=== PATIENT | male | born 2000 ===

== ENCOUNTER 2023-05-28 03:33 | Inpatient (IN) | payer MEDICAID, SELFPAY ==
[2023-05-28] VITALS (18 sets, daily range): BP systolic 117–136; BP diastolic 51–77; PULSE 101–131; RESP 18–40; TEMP 36.4–37.2; O2SAT 90–95; BMI 48.2
--- NOTE | ~2023-05-28 | XR_ITS ---
EXAMINATION: XR CHEST CLINICAL INFORMATION: Dyspnea. COMPARISON: None available. TECHNIQUE: Frontal view of the chest was obtained. FINDINGS: No significant abnormality is noted involving the heart, lungs, mediastinum, bony thorax or soft tissues. XR/XR chest 1V IMPRESSION: Unremarkable examination.
--- NOTE | 2023-05-28 03:41 | ECG_ITS ---
Test Reason : ASTHMA Blood Pressure : / mmHG Vent. Rate : 112 BPM Atrial Rate : 112 BPM P-R Int : 122 ms QRS Dur : 094 ms QT Int : 342 ms P-R-T Axes : 068 -33 021 degrees QTc Int : 466 ms Sinus tachycardia Left axis deviation Incomplete right bundle branch block Abnormal ECG No previous ECGs available Referred By: Generic ED Physician Electronically Signed By:NA CALEL
[2023-05-28 03:58] LABS: Basophils Absolute Auto 0.1 X10*3/uL (0.0-0.2); Basophils Percent Auto 0.6 % (0-2); Eosinophils Absolute Auto 0.4 X10*3/uL (0.0-0.4); Eosinophils Percent Auto 2.6 % (0-4); Hematocrit 43.7 % (42.0-52.0); Hemoglobin 14.5 g/dl (14.0-18.0); Imm Gran Abs Auto 0.12 X10*3/uL (0.00-0.03); Imm Gran Pct Auto 0.8 % (0.0-0.4); Lymphocytes Absolute Auto 2.4 X10*3/uL (1.2-4.9); Lymphocytes Percent Auto 16.8 % (20-40); MANUAL DIFF FLAG SCAN; Mean Corpuscular HGB Conc 33.2 g/dl (31.0-36.0); Mean Corpuscular Hemoglobin 27.7 pg (27.0-33.0); Mean Corpuscular Volume 83.6 fL (80.0-98.0); Mean Platelet Volume 12.5 fL (9.4-12.4); Monocytes Absolute Auto 1.5 X10*3/uL (0.1-1.2); Monocytes Percent Auto 10.4 % (2-11); Neutrophils Percent Auto 68.8 % (45-73); Platelet Count 213 X10*3/uL (160-400); Red Blood Count 5.23 X10*6/uL (4.60-5.80); SCAN SMEAR FLAG 1; White Blood Count 14.5 X10*3/uL (4.8-10.8)
--- NOTE | 2023-05-28 04:05 | MHC.EDTECH ---
This pct just assumed care of pt ,ekg taken and was read by Provider ,,flu/covid swab collected and sent to lab .
[2023-05-28] MEDS: Albuterol Sulfate 5 MG, Albuterol Sulfate (0.083%) 2.5 MG 7.5 MG INHALE (04:08)
[2023-05-28 04:11] LABS: Anion Gap 14 (12-20); Blood Urea Nitrogen 11 mg/dL (9-16); Calcium 9.6 mg/dL (8.4-10.2); Carbon Dioxide 25 mmol/L (22-29); Chloride 108 mmol/L (96-108); Creatinine Clr Calc Pharmacy 189.8; Estimated Glomerular Filt Rate > 60; Glucose Random 119 mg/dL (60-115); Potassium 3.9 mmol/L (3.3-5.1); Sodium 143 mmol/L (135-145)
[2023-05-28] MEDS: Albuterol Sulfate 7.5 MG, Albuterol Sulfate (0.083%) 2.5 MG 10 MG INHALE (04:25)
[2023-05-28 04:26] LABS: Troponin-I High Sensitivity < 2.7 ng/L (<3.5-35.0)
[2023-05-28 04:26] LABS: COVID-19 Test Negative (Negative); IDNOW Serial# 152EDE1D; IDNOW Serial# 9DB6401D; Influenza A Negative (Negative); Influenza B2 Negative (Negative)
[2023-05-28 04:28] LABS: SLIDE REVIEW VERIFIED
--- NOTE | 2023-05-28 04:30 | ED.SOB ---
HPI - SOB/Dyspnea General Chief Complaint: Dyspnea Stated Complaint: asthma Time Seen by Provider: 05/28/23 04:14 Source: patient Mode of arrival: ambulatory Limitations: no limitations History of Present Illness HPI Narrative: Patient history of asthma been feeling increased shortness of breath for last 2 days ran out of his inhaler and nebulizing medication since yesterday also does have nasal congestion does not get sick very often no fever no chills no chest pain no other family member sick Related Data Allergies Allergy/AdvReac Type Severity Reaction Status Date / Time No Known Allergies Allergy Verified 05/28/23 04:31 Review of Systems Review of Systems: Yes all other systems are reviewed and are negative PMFSH Past Medical History Onset Date is defined in the Problem List Problems that require an onset date and time if occurred within 24 hrs of arrival to the ED Aortic Dissection and Rupture; Neurologic impairment; Cardiopulmonary Arrest; Endotracheal Intubation; Insertion or Replacement of Mechanical Circulatory Assist Device Medical History Asthma Social History Social History Advance Directives: No Advance Directives Information Provided: Yes Physical Exam Vital Signs: Vital Signs: Last Vital Signs Temp 98.5 F 05/28/23 05:01 Pulse 125 H 05/28/23 05:41 Resp 24 H 05/28/23 05:41 BP 136/77 05/28/23 05:01 Pulse Ox 93 05/28/23 05:01 O2 Del Method Room Air 05/28/23 05:01 O2 Flow Rate 2 05/28/23 05:01 BMI result Body Mass Index 48.2 Appearance: Alert. Oriented X3. Moderate respiratory distress with audible wheezing Eyes: PERRLA, No Nystagmus ENT: Pharynx normal. Oral Mucosa moist Neck: Normal inspection. Neck supple. CVS: Normal heart rate and rhythm. Pulses normal. Respiratory: Mode respiratory distress. Equal air entry bilateral, bilateral wheezing no rales Abdomen: Soft and nontender. Bowel sounds are present, Skin: Skin warm and dry. Normal skin color. Normal skin turgor. Extremities: No lower extremity edema. No calf tenderness Neuro: Oriented X 3. No motor deficit. Medications Administered Generic Name Dose Route Start Last Admin Trade Name Freq PRN Reason Stop Dose Admin Enoxaparin Sodium 40 mg 05/28/23 05:00 05/28/23 05:12 Enoxaparin Sodium 40 Mg/0.4 Ml Syringe SUBCUT Not Given Q24H KAILA Discontinued Medications Generic Name Dose Route Start Last Admin Trade Name Geovany PRN Reason Stop Dose Admin Albuterol Sulfate 5 mg/ 7.5 mg 05/28/23 04:03 05/28/23 04:08 Albuterol Sulfate 2.5 mg INHALE 05/28/23 04:04 7.5 mg ONCE ONE Administration Albuterol Sulfate 7.5 mg/ 10 mg 05/28/23 04:19 05/28/23 04:25 Albuterol Sulfate 2.5 mg INHALE 05/28/23 04:20 10 mg ONCE ONE Administration Albuterol Sulfate 7.5 mg/ 0 mg 05/28/23 05:06 05/28/23 05:15 Albuterol/Ipratropium 3 ml INHALE 05/28/23 05:07 10 each ONCE ONE Administration Magnesium Sulfate 2 gm in 50 mls @ 150 mls/hr 05/28/23 04:31 05/28/23 05:43 Magnesium Sulfate/H2o IV 05/28/23 04:50 Infused ONCE ONE Infusion Methylprednisolone Sodium Succinate 125 mg 05/28/23 04:31 05/28/23 05:10 Methylprednisolone Sod Succ 125 Mg/2 Ml Vial IVPUSH 05/28/23 04:32 125 mg ONCE ONE Administration Medical Decision Making Medical Decision Making [facility] Narrative: Patient has status asthmaticus requiring continuous treatments the ER admit patient for supportive treatment Differential Diagnosis Differential Diagnoses: The differential diagnosis associated with the presentation includes Asthma/pneumonia/pneumonitis Admission/Observation Consideration of admission/observation: Escalation of care including admission/observation considered Consult Healthcare Provider Management of the patient was discussed with: Hospitalist Lab Data [facility] Lab Attestation statement: I reviewed the patient's lab results. 05/28/23 03:52 05/28/23 03:52 Labs: Lab Results 05/28/23 05/28/23 Range/Units 03:52 04:04 WBC 14.5 H (4.8-10.8) X10*3/uL RBC 5.23 (4.60-5.80) X10*6/uL Hgb 14.5 (14.0-18.0) g/dl Hct 43.7 (42.0-52.0) % MCV 83.6 (80.0-98.0) fL MCH 27.7 (27.0-33.0) pg MCHC 33.2 (31.0-36.0) g/dl RDW 14.0 (11.0-16.0) % Plt Count 213 (160-400) X10*3/uL MPV 12.5 H (9.4-12.4) fL Immature Gran % (Auto) 0.8 H (0.0-0.4) % Neut % (Auto) 68.8 (45-73) % Lymph % (Auto) 16.8 L (20-40) % [place] % (Auto) 10.4 (2-11) % Eos % (Auto) 2.6 (0-4) % Baso % (Auto) 0.6 (0-2) % Lymph # (Auto) 2.4 (1.2-4.9) X10*3/uL [place] # (Auto) 1.5 H (0.1-1.2) X10*3/uL Eos # (Auto) 0.4 (0.0-0.4) X10*3/uL Baso # (Auto) 0.1 (0.0-0.2) X10*3/uL Abs Immat Gran (auto) 0.12 H (0.00-0.03) X10*3/uL Absolute Neuts (auto) 10.0 H (2.0-8.3) x10*3/uL Absolute Nucleated RBC 0.000 (0.0-0.012) X10*3/uL Nucleated RBC % (auto) 0.0 (0.0-0.2) /100WBC Smear Tech's Comments VERIFIED Sodium 143 (135-145) mmol/L Potassium 3.9 (3.3-5.1) mmol/L Chloride 108 (96-108) mmol/L Carbon Dioxide 25 (22-29) mmol/L Anion Gap 14 (12-20) BUN 11 (9-16) mg/dL Creatinine 0.92 (0.5-1.4) mg/dL Estim Creat Clear Calc 189.8 Estimated GFR > 60 Random Glucose 119 H (60-115) mg/dL Calcium 9.6 (8.4-10.2) mg/dL Troponin I High Sens < 2.7 (<3.5-35.0) ng/L COVID-19 (JAN) Negative (Negative) COVID-19 Clin Com See Note Influenza Type A (MARIA ISABEL) Negative (Negative) Influenza Type B (MARIA ISABEL) Negative (Negative) Influenza A & B Note See Note Independent Interpretation I performed an independent interpretation of an: Plain X-Ray Radiology Impression Discussion of test interpretation with radiology: I have reviewed the radiologist's reading. Critical Care Time Critical Care Time Critical Care Time: Yes Total Critical Care Time: 55 Attestation: The patient was critically ill with a high probability of imminent or life threatening deterioration. I spent greater than 60???minutes of discontinuous time evaluating the patient,delivering critical care at the bedside, discussing and evaluating pertinent data with consultants. Critical care time does not include time spent performing separately billable procedures or teaching. Total time spent performing critical care was 55???minutes. Discharge Plan Discharge Clinical Impression: Asthma exacerbation Patient Disposition: Admitted As Inpatient
--- NOTE | 2023-05-28 04:45 | P.HPHOSP_ITS ---
History of Present Illness Date of Service: 05/28/23 Chief Complaint: Dyspnea This is a 22-year-old male with pertinent history of asthma not on home oxygen who presents to the emergency department for evaluation of dyspnea. Patient states his symptoms started 3 days prior to presentation. He has been having nonproductive cough which is associated with wheezing and dyspnea which is worse with exertion. His symptoms have been progressive over the last 3 days and without any relief. He states he has been hospitalized for asthma in the past. Never been intubated. No fever, chills, chest discomfort, palpitations, orthopnea, PND, abdominal pain, changes in urinary or bowel habits. In the emergency department, patient with wheezing despite multiple DuoNeb treatments Review of Systems 2 Constitutional: Constitutional: Reports fatigue and Reports lethargy Cardiovascular: Cardiovascular: Reports dyspnea on exertion Respiratory: Respiratory: Reports cough, Reports dyspnea on exertion and Reports wheezing Gastrointestinal: Gastrointestinal: Reports no additional gastrointestinal complaints Genitourinary: Genitourinary: Reports no additional male genitourinary complaints Endocrine: Endocrine: Reports fatigue Allergic/Immunologic: Allergic/Immunologic: Reports wheezing [facility] Medical History Asthma Pertinent family history: No family history of early CAD Social History Advance Directives: No Advance Directives Information Provided: Yes Meds Allergies Allergy/AdvReac Type Severity Reaction Status Date / Time No Known Allergies Allergy Verified 05/28/23 04:31 Active Medications: Current Medications Magnesium Sulfate (Magnesium Sulfate/H2o) 2 gm in 50 mls @ 150 mls/hr IV ONCE ONE Stop: 05/28/23 04:50 Physical Exam 2 Vital Signs and Narrative: Vital Signs: Last Vital Signs Temp 98.4 F 05/28/23 04:00 Pulse 108 H 05/28/23 04:26 Resp 18 05/28/23 04:26 BP 122/75 05/28/23 04:00 Pulse Ox 93 05/28/23 04:00 O2 Del Method Room Air 05/28/23 04:00 BMI result Body Mass Index 48.2 Young male lying in bed in mild distress Neck supple, no JVD Tachycardic with regular rhythm, S1-S2 heard Bilateral wheezing without crackles Abdomen soft nontender, no guarding, no rigidity Patient is awake, alert and oriented to self, place, time and person ; no focal motor deficit Psych: Normal mood No pedal edema Results Labs 05/28/23 03:52 05/28/23 03:52 Labs: Laboratory Results - last 24 hr 05/28/23 05/28/23 03:52 04:04 MCV 83.6 MCH 27.7 MCHC 33.2 RDW 14.0 Plt Count 213 MPV 12.5 H Immature Gran % (Auto) 0.8 H Neut % (Auto) 68.8 Lymph % (Auto) 16.8 L [place] % (Auto) 10.4 Eos % (Auto) 2.6 Baso % (Auto) 0.6 Lymph # (Auto) 2.4 [place] # (Auto) 1.5 H Eos # (Auto) 0.4 Baso # (Auto) 0.1 Abs Immat Gran (auto) 0.12 H Absolute Neuts (auto) 10.0 H Absolute Nucleated RBC 0.000 Nucleated RBC % (auto) 0.0 Smear Tech's Comments VERIFIED Anion Gap 14 Estim Creat Clear Calc 189.8 Estimated GFR > 60 Random Glucose 119 H Calcium 9.6 COVID-19 (JAN) Negative COVID-19 Clin Com See Note Influenza Type A (MARIA ISABEL) Negative Influenza Type B (MARIA ISABEL) Negative Influenza A & B Note See Note Assessment and Plan (1) Asthma exacerbation: Status: Acute Plan This is a 22-year-old male with pertinent history of asthma not on home oxygen who presents to the emergency department for evaluation of dyspnea. #. Acute respiratory distress due to acute exacerbation of asthma: Scheduled and p.r.nLawanda Edouard. Initiating systemic steroids. Continue home inhaler #. Reactive leukocytosis and sinus tachycardia in the setting of above #. Obesity: Counseled regarding diet and exercise DVT prophylaxis: Lovenox Full code Quality Stroke Does the patient have a stroke diagnosis?: No VTE Prior VTE?: No VTE Risk Level:: Medical - moderate - high VTE Device Contraindication: Treatment Not Indicated VTE Drug Contraindication: N/A - Med Ordered
[2023-05-28] MEDS: Magnesium Sulfate/H2O 2 GM/50 ML PIGGYBACK IV (05:10)
[2023-05-28] MEDS: methylPREDNISolone Sod Succ 125 MG/2 ML VIAL IVPUSH (05:10)
[2023-05-28] MEDS: Albuterol Sulfate 7.5 MG, Albuterol/Iprat 2.5/0.5MG 3 ML 3 ML INHALE (05:15)
[2023-05-28 05:59] LABS: Basophils Absolute Auto 0.1 X10*3/uL (0.0-0.2); Basophils Percent Auto 0.6 % (0-2); Eosinophils Absolute Auto 0.4 X10*3/uL (0.0-0.4); Eosinophils Percent Auto 2.8 % (0-4); Hematocrit 45.4 % (42.0-52.0); Hemoglobin 14.7 g/dl (14.0-18.0); Imm Gran Abs Auto 0.08 X10*3/uL (0.00-0.03); Imm Gran Pct Auto 0.5 % (0.0-0.4); Lymphocytes Absolute Auto 2.4 X10*3/uL (1.2-4.9); Lymphocytes Percent Auto 15.4 % (20-40); MANUAL DIFF FLAG SCAN; Mean Corpuscular HGB Conc 32.4 g/dl (31.0-36.0); Mean Corpuscular Hemoglobin 27.5 pg (27.0-33.0); Mean Platelet Volume 12.2 fL (9.4-12.4); Monocytes Absolute Auto 1.5 X10*3/uL (0.1-1.2); Monocytes Percent Auto 9.7 % (2-11); Neutrophils Absolute Auto 11.1 x10*3/uL (2.0-8.3); Platelet Count 190 X10*3/uL (160-400); Red Blood Count 5.34 X10*6/uL (4.60-5.80); Red Cell Distribution Width 14.1 % (11.0-16.0); SCAN SMEAR FLAG 1; White Blood Count 15.6 X10*3/uL (4.8-10.8)
[2023-05-28 06:11] LABS: Anion Gap 15 (12-20); Blood Urea Nitrogen 10 mg/dL (9-16); Calcium 9.4 mg/dL (8.4-10.2); Carbon Dioxide 21 mmol/L (22-29); Chloride 107 mmol/L (96-108); Creatinine Clr Calc Pharmacy 218.3; Estimated Glomerular Filt Rate > 60; Glucose Random 143 mg/dL (60-115); Potassium 3.4 mmol/L (3.3-5.1); Sodium 140 mmol/L (135-145)
[2023-05-28] MEDS: Albuterol/Iprat 2.5/0.5MG 3 ML AMPUL.NEB INHALE ×3 (08:12→19:55)
[2023-05-28] MEDS: methylPREDNISolone Sod Succ 40 MG/ML VIAL IVPUSH ×2 (08:45→20:50)
[2023-05-28] MEDS: 0.9 % Sodium Chloride Flush 3 ML SYRINGE IVFLUSH ×3 (08:46→20:50)
[2023-05-28] MEDS: Enoxaparin Sodium 40 MG/0.4 ML SYRINGE SUBCUT (09:05)
--- NOTE | 2023-05-28 09:11 | PHA.MEDREC ---
Pharmacy Consult ? Medication Reconciliation Pharmacy has completed the medication reconciliation. spoke with patient to confirm medications. Reports that he ran out of his breathing treatments.
[2023-05-28] MEDS: LORazepam 1 MG TABLET PO (12:00)
--- NOTE | 2023-05-28 12:35 | P.CONPL_ITS ---
History of Present Illness History of Present Illness Consult date: 05/28/23 Chief complaint: dyspnea Narrative: 22-year-old gentleman, nonsmoker, with history of asthma since childhood admitted on 05/28/2023 with asthma exacerbation resulting in dyspnea. He was started systemic glucocorticoids and nebulized bronchodilators with some improvement, however still with wheezing. Review of Systems 2 Constitutional: Constitutional: Denies daytime sleepiness, Denies excessive sweating, Denies fatigue, Denies fever(s), Denies lethargy, Denies malaise, Denies night sweats, Denies snoring and Denies weight loss Eyes: Eyes: Denies blurry vision and Denies itchy eyes ENT: Denies nasal congestion, Denies post nasal drip, Denies sinus pain, Denies sinus pressure and Denies other ( Thrush) Cardiovascular: Cardiovascular: Denies chest pain, Denies pedal edema, Reports dyspnea, Denies orthopnea and Denies paroxysmal nocturnal dyspnea Respiratory: Respiratory: Denies cough, Denies hemoptysis, Denies excessive phlegm production, Reports dyspnea, Denies snoring and Reports wheezing Gastrointestinal: Gastrointestinal: Denies abdominal pain and Denies heartburn Musculoskeletal: Musculoskeletal: Denies myalgias, Denies arthralgias and Denies joint swelling Integumentary/Breasts: Skin/Breast: Denies rash Neurologic: Denies memory loss and Denies seizure-like activity Psychiatric: Psychiatric: Denies abnormal sleep pattern, Denies anxiety and Denies memory loss Endocrine: Endocrine: Denies excessive sweating, Denies fatigue and Denies heat intolerance Hematologic/Lymphatic: Hematologic/Lymphatic: Denies easy bruising Allergic/Immunologic: Allergic/Immunologic: Denies itchy eyes, Denies seasonal rhinorrhea and Reports wheezing PMFSH Past Medical History Medical History Asthma Social History Social History Patient Tobacco Use Status: Never used Tobacco Advance Directives: No Advance Directives Information Provided: Yes Nutrition Risks: No Nutritional Risk Meds Allergies Allergy/AdvReac Type Severity Reaction Status Date / Time No Known Allergies Allergy Verified 05/28/23 04:31 Active Medications: Current Medications Acetaminophen (Acetaminophen 325 Mg Tablet) 650 mg PO Q6H PRN PRN Reason: Pain, Mild (Pain Scale 1-3) Albuterol/Ipratropium (Albuterol/Iprat 2.5/0.5mg 3 Ml Ampul.Neb) 3 ml INHALE RQ4H WHILE AWAKE [facility] Last Admin: 05/28/23 11:49 Dose: Not Given Albuterol/Ipratropium (Albuterol/Iprat 2.5/0.5mg 3 Ml Ampul.Neb) 3 ml INHALE Q4H PRN PRN Reason: Wheezing Enoxaparin Sodium (Enoxaparin Sodium 40 Mg/0.4 Ml Syringe) 40 mg SUBCUT Q24H [facility] Last Admin: 05/28/23 09:05 Dose: 40 mg Lorazepam (Lorazepam 1 Mg Tablet) 1 mg PO Q6H PRN PRN Reason: Anxiety Last Admin: 05/28/23 12:00 Dose: 1 mg Melatonin (Melatonin 3 Mg Tablet) 6 mg PO BEDTIME PRN PRN Reason: Insomnia Methylprednisolone Sodium Succinate (Methylprednisolone Sod Succ 40 Mg/Ml Vial) 40 mg IVPUSH Q12H [facility] Last Admin: 05/28/23 08:45 Dose: 40 mg Ondansetron HCl (Ondansetron Hcl 4 Mg/2 Ml Vial) 4 mg IVPUSH Q8H PRN PRN Reason: Nausea and Vomiting Sodium Chloride (0.9 % Sodium Chloride Flush 3 Ml Syringe) 3 ml IVFLUSH QSHIFT [facility] Last Admin: 05/28/23 08:46 Dose: 3 ml Home Medications Medication Instructions Recorded Confirmed Last Taken Type albuterol sulfate 2.5 mg/3 mL 2.5 mg inhalation Q4-6H PRN 05/28/23 05/28/23 Unknown History (0.083 %) solution for nebulization wheezing albuterol sulfate 90 mcg/actuation 2 puff inhalation Q4H PRN 05/28/23 05/28/23 Unknown History aerosol inhaler (Ventolin HFA) Shortness Of Breath Or Wheezing budesonide-formoterol HFA 160 2 puff inhalation BID 05/28/23 05/28/23 Unknown History mcg-4.5 mcg/actuation aerosol inhaler (Symbicort) Physical Exam 2 Vital Signs: Vital Signs: Last Vital Signs Temp 98 F 05/28/23 10:48 Pulse 101 H 05/28/23 10:59 Resp 24 H 05/28/23 10:59 BP 117/64 05/28/23 10:48 Pulse Ox 95 05/28/23 10:48 O2 Del Method Nasal Cannula 05/28/23 10:48 O2 Flow Rate 3 05/28/23 10:48 BMI result Body Mass Index 48.2 Const: General: no acute distress and alert Nutritional Appearance: obese Orientation/consciousness: Other orientation findings ( oriented) HEENT: Head: Yes atraumatic Eyes: General: appearance normal, both eyes and all related structures S clerae: sclerae normal EOM: EOMs intact bilaterally Neck: Neck: Yes supple Lymphatic: no lymphadenopathy noted Resp: Effort & Inspection: normal respiratory effort and no use of accessory muscles Auscultation: wheezes expiratory wheezes (Bilateral) Cardio: Rate: regular rate Rhythm: regular rhythm Heart sounds: no gallops, no murmurs and no rubs Skin: General skin exam: other ( warm) Extrem: General: No clubbing, No cyanosis and No edema Results Laboratory Findings 05/28/23 05:51 05/28/23 05:51 Abnormal lab findings: Abnormal Labs 05/28/23 05/28/23 03:52 05:51 WBC 14.5 H 15.6 H MPV 12.5 H Immature Gran % (Auto) 0.8 H 0.5 H Lymph % (Auto) 16.8 L 15.4 L [place] # (Auto) 1.5 H 1.5 H Abs Immat Gran (auto) 0.12 H 0.08 H Absolute Neuts (auto) 10.0 H 11.1 H Carbon Dioxide 21 L Random Glucose 119 H 143 H Assessment and Plan (1) Asthma exacerbation: Status: Acute (2) Obesity: Status: Acute Plan Impression: 22-year-old gentleman with underlying severe persistent asthma since childhood now admitted with an asthma exacerbation, being treated with systemic glucocorticoids and nebulized bronchodilators with some improvement. Recommendations: Agree with current treatment regimen consisting of systemic glucocorticoids and nebulized bronchodilators. On discharge should be started on LABA/ICS. Will set up follow-up with Pulmonary office. Also, will need workup for likely underlying BLAINE. Procedures Date of Service Date of Service: 05/28/23
--- NOTE | 2023-05-28 12:54 | HO.PM.IMPN ---
Subjective Subjective Date of Service: 05/28/23 Interval History: f/u on asthma exacerbation Pt noted to be very anxious, tachypnic, tachycardia, and wheezing Physical Exam Vital Signs: Vital Signs: Last Vital Signs Temp 98 F 05/28/23 10:48 Pulse 101 H 05/28/23 10:59 Resp 24 H 05/28/23 10:59 BP 117/64 05/28/23 10:48 Pulse Ox 95 05/28/23 10:48 O2 Del Method Nasal Cannula 05/28/23 10:48 O2 Flow Rate 3 05/28/23 10:48 BMI result Body Mass Index 48.2 General: AO X 3, in some resp distress Resp: rapid breathing, tight air movement, wheezing [place]ana CVS: S1,S2,RRR GI: +BS, NT, no distention Skin: No rash Neuro: motor grossly intact Psych: appropriate affect Objective Data Active Medications Acetaminophen (Acetaminophen 325 Mg Tablet) 650 mg PO Q6H PRN PRN Reason: Pain, Mild (Pain Scale 1-3) Albuterol/Ipratropium (Albuterol/Iprat 2.5/0.5mg 3 Ml Ampul.Neb) 3 ml INHALE RQ4H WHILE AWAKE [facility] Last Admin: 05/28/23 11:49 Dose: Not Given Documented By: PATRICIA Non-Admin Reason: See Note Albuterol/Ipratropium (Albuterol/Iprat 2.5/0.5mg 3 Ml Ampul.Neb) 3 ml INHALE Q4H PRN PRN Reason: Wheezing Enoxaparin Sodium (Enoxaparin Sodium 40 Mg/0.4 Ml Syringe) 40 mg SUBCUT Q24H [facility] Last Admin: 05/28/23 09:05 Dose: 40 mg Documented By: MIRIAN Lorazepam (Lorazepam 1 Mg Tablet) 1 mg PO Q6H PRN PRN Reason: Anxiety Last Admin: 05/28/23 12:00 Dose: 1 mg Documented By: MIRIAN Melatonin (Melatonin 3 Mg Tablet) 6 mg PO BEDTIME PRN PRN Reason: Insomnia Methylprednisolone Sodium Succinate (Methylprednisolone Sod Succ 40 Mg/Ml Vial) 40 mg IVPUSH Q12H [facility] Last Admin: 05/28/23 08:45 Dose: 40 mg Documented By: MIRIAN Ondansetron HCl (Ondansetron Hcl 4 Mg/2 Ml Vial) 4 mg IVPUSH Q8H PRN PRN Reason: Nausea and Vomiting Sodium Chloride (0.9 % Sodium Chloride Flush 3 Ml Syringe) 3 ml IVFLUSH QSHIFT [facility] Last Admin: 05/28/23 08:46 Dose: 3 ml Documented By: MIRIAN Labs 05/28/23 05:51 05/28/23 05:51 Labs: Laboratory Results - last 24 hr 05/28/23 05/28/23 05/28/23 03:52 04:04 05:51 MCV 83.6 85.0 MCH 27.7 27.5 MCHC 33.2 32.4 RDW 14.0 14.1 Plt Count 213 190 MPV 12.5 H 12.2 Immature Gran % (Auto) 0.8 H 0.5 H Neut % (Auto) 68.8 71.0 Lymph % (Auto) 16.8 L 15.4 L [place] % (Auto) 10.4 9.7 Eos % (Auto) 2.6 2.8 Baso % (Auto) 0.6 0.6 Lymph # (Auto) 2.4 2.4 [place] # (Auto) 1.5 H 1.5 H Eos # (Auto) 0.4 0.4 Baso # (Auto) 0.1 0.1 Abs Immat Gran (auto) 0.12 H 0.08 H Absolute Neuts (auto) 10.0 H 11.1 H Absolute Nucleated RBC 0.000 0.000 Nucleated RBC % (auto) 0.0 0.0 Smear Tech's Comments VERIFIED Anion Gap 14 15 Estim Creat Clear Calc 189.8 218.3 Estimated GFR > 60 > 60 Random Glucose 119 H 143 H Calcium 9.6 9.4 COVID-19 (JAN) Negative COVID-19 Clin Com See Note Influenza Type A (MARIA ISABEL) Negative Influenza Type B (MARIA ISABEL) Negative Influenza A & B Note See Note Assessment and Plan (1) Obesity: Status: Acute (2) Asthma exacerbation: Status: Acute Plan 22-year-old obese male with pertinent history of asthma not on home oxygen who presents to the emergency department for evaluation of dyspnea. Acute respiratory distress due to acute exacerbation of moderate persistent asthma -IV steroid -Bronchodilators by Neb (Xopenex d/t tachycardia) -pulmonology consult Reactive leukocytosis and sinus tachycardia in the setting of above Suspected Hypoventilation BLAINE, should have outpatient sleep study Obesity: Counseled regarding diet and exercise DVT prophylaxis: Lovenox Full code Quality Stroke Does the patient have a stroke diagnosis?: No VTE Prior VTE?: No VTE Risk Level:: Medical - moderate - high VTE Device Contraindication: Treatment Not Indicated VTE Drug Contraindication: N/A - Med Ordered
--- NOTE | 2023-05-28 16:01 | MHC.CM.PN ---
TAIWO DELIVERED. PATIENT IS CURRENTLY LIVING AT [facility] WHERE HE IS A STUDENT. FUNCTIONALLY INDEPENDENT. PCP IN THE COMMUNITY IS ALIYAH RENEE MD, MD AT [facility] IS LESIA ALARCON MD NO HCP, CM OFFERED ASSISTANCE, PT DECLINED DP: GOAL IS RETURN TO [facility], SELF CARE. STAFF WILL TRANSPORT. CALL [phone]. FX DC SUMMARY TO [facility] AT [phone]. CM WILL CONTINUE TO FOLLOW.
--- NOTE | 2023-05-28 18:37 | PC.NURSE ---
patient seems to be more calm after Ativan given to him being so anxious regarding his breathing. oxygen lowred back down to 2LNC and he is maintaining his levels at 92-94 percent
--- NOTE | 2023-05-28 20:06 | PC.NURSE ---
resp at bedside for breathing treatment. report written for admission to [facility]. pt aware of move upstairs
[2023-05-28] MEDS: levalbuterol HCL 1.25 MG/3 ML VIAL.NEB INHALE (23:48)
[2023-05-29] VITALS (12 sets, daily range): BP systolic 115–161; BP diastolic 56–71; PULSE 83–120; RESP 18–20; TEMP 36.3–36.8; O2SAT 90–97
[2023-05-29] MEDS: levalbuterol HCL 1.25 MG/3 ML VIAL.NEB INHALE ×5 (03:01→23:07)
--- NOTE | 2023-05-29 07:48 | HO.PM.IMPN ---
Subjective Subjective Date of Service: 05/29/23 Interval History: f/u on asthma exacerbation still sob, wheezing, anxious Physical Exam Vital Signs: Vital Signs: Last Vital Signs Temp 97.3 F 05/29/23 03:05 Pulse 120 H 05/29/23 03:05 Resp 19 05/29/23 03:05 BP 115/61 05/29/23 03:05 Pulse Ox 91 L 05/29/23 03:05 O2 Del Method Nasal Cannula 05/29/23 03:05 O2 Flow Rate 2 05/29/23 03:05 BMI result Body Mass Index 48.2 General: AO X 3, anxious Resp: shoshana wheezing, rhonchi, bit more than normal effort CVS: S1,S2,RRR GI: +BS, NT, no distention Skin: No rash Neuro: motor grossly intact Psych: appropriate affect Objective Data Active Medications Acetaminophen (Acetaminophen 325 Mg Tablet) 650 mg PO Q6H PRN PRN Reason: Pain, Mild (Pain Scale 1-3) Enoxaparin Sodium (Enoxaparin Sodium 40 Mg/0.4 Ml Syringe) 40 mg SUBCUT Q24H [facility] Last Admin: 05/28/23 09:05 Dose: 40 mg Documented By: MIRIAN Levalbuterol HCl (Levalbuterol Hcl 1.25 Mg/3 Ml Vial.Neb) 1.25 mg INHALE Q6H [facility] Last Admin: 05/29/23 03:01 Dose: 1.25 mg Documented By: KB Levalbuterol HCl (Levalbuterol Hcl 1.25 Mg/3 Ml Vial.Neb) 1.25 mg INHALE Q2H PRN PRN Reason: Shortness of Breath/Wheezing Lorazepam (Lorazepam 1 Mg Tablet) 1 mg PO Q6H PRN PRN Reason: Anxiety Last Admin: 05/28/23 12:00 Dose: 1 mg Documented By: MIRIAN Melatonin (Melatonin 3 Mg Tablet) 6 mg PO BEDTIME PRN PRN Reason: Insomnia Methylprednisolone Sodium Succinate (Methylprednisolone Sod Succ 40 Mg/Ml Vial) 40 mg IVPUSH Q12H [facility] Last Admin: 05/28/23 20:50 Dose: 40 mg Documented By: LAY Ondansetron HCl (Ondansetron Hcl 4 Mg/2 Ml Vial) 4 mg IVPUSH Q8H PRN PRN Reason: Nausea and Vomiting Sodium Chloride (0.9 % Sodium Chloride Flush 3 Ml Syringe) 3 ml IVFLUSH QSHIFT [facility] Last Admin: 05/28/23 20:50 Dose: 3 ml Documented By: LAY Travis 05/28/23 05:51 05/28/23 05:51 Assessment and Plan (1) Obesity: Status: Acute (2) Asthma exacerbation: Status: Acute Plan 22-year-old obese male with pertinent history of asthma not on home oxygen who presents to the emergency department for evaluation of dyspnea. Acute respiratory distress due to acute exacerbation of moderate persistent asthma -IV steroid, increase dose -Bronchodilators by Neb (Xopenex d/t tachycardia) -pulmonology following Reactive leukocytosis and sinus tachycardia in the setting of above Suspected Hypoventilation BLAINE, should have outpatient sleep study Obesity: Counseled regarding diet and exercise DVT prophylaxis: Lovenox Full code Need for inpatient: Acute asthma exacerbation requiring IV steroid, frequent Neb treatment Quality Stroke Does the patient have a stroke diagnosis?: No VTE Prior VTE?: No VTE Risk Level:: Medical - moderate - high VTE Device Contraindication: Treatment Not Indicated VTE Drug Contraindication: N/A - Med Ordered
[2023-05-29] MEDS: methylPREDNISolone Sod Succ 40 MG/ML VIAL 60 MG IVPUSH ×3 (09:42→23:06)
[2023-05-29] MEDS: 0.9 % Sodium Chloride Flush 3 ML SYRINGE IVFLUSH ×3 (09:43→23:06)
[2023-05-29] MEDS: Enoxaparin Sodium 40 MG/0.4 ML SYRINGE SUBCUT (09:43)
[2023-05-29] MEDS: LORazepam 1 MG TABLET PO (23:06)
[2023-05-30] VITALS (8 sets, daily range): BP systolic 109–136; BP diastolic 50–65; PULSE 91–113; RESP 16–20; TEMP 36–37.1; O2SAT 90–97
[2023-05-30] MEDS: levalbuterol HCL 1.25 MG/3 ML VIAL.NEB INHALE ×3 (05:21→15:21)
[2023-05-30] MEDS: methylPREDNISolone Sod Succ 40 MG/ML VIAL 60 MG IVPUSH ×3 (08:29→22:56)
[2023-05-30] MEDS: 0.9 % Sodium Chloride Flush 3 ML SYRINGE IVFLUSH ×3 (08:29→22:56)
[2023-05-30] MEDS: Enoxaparin Sodium 40 MG/0.4 ML SYRINGE SUBCUT (08:32)
[2023-05-30] MEDS: Throat Lozenge, Medicated LOZENGE 1 LOZENGE MUCOUS MEM ×2 (09:10→12:30)
--- NOTE | 2023-05-30 09:20 | P.PNIM_ITS ---
Subjective Subjective Date of Service: 05/30/23 <Garima Delgado - Last Filed: 05/30/23 10:40> 05/30/23 <Francois Gomez MD - Last Filed: 05/30/23 11:36> Interval History: Follow up on respiratory distress d/t asthma exacerbation. He says he is feeling better but still has difficulty breathing especially with physical activity. Denies CP, palpitations, headache, n/v, fever/chills. < Garima Delgado - Last Filed: 05/30/23 10:40> Follow up on respiratory distress d/t asthma exacerbation. He says he is feeling better but still has difficulty breathing especially with physical activity. Denies CP, palpitations, headache, n/v, fever/chills. Still on O2 <Francois Gomez MD - Last Filed: 05/30/23 11:36> Review of Systems Review of Systems: Yes all other systems are reviewed and are negative <Garima Delgado - Last Filed: 05/30/23 10:40> Physical Exam 2 Vital Signs: Vital Signs: Last Vital Signs Temp 96.8 F 05/30/23 07:19 Pulse 91 05/30/23 07:19 Resp 18 05/30/23 07:19 BP 115/65 05/30/23 07:19 Pulse Ox 91 L 05/30/23 07:19 O2 Del Method Room Air 05/30/23 07:19 O2 Flow Rate 3 05/30/23 04:00 BMI result Body Mass Index 48.2 <aGrima Delgado - Last Filed: 05/30/23 10:40> General: AO X 3 Resp: shoshana wheezing, rhonchi, no accessory muscle use CVS: S1,S2,RRR GI: NT, no distention Skin: No rash Neuro: motor grossly intact Psych: appropriate affect <Garima Delgado - Last Filed: 05/30/23 10:40> Objective Data Active Medications Acetaminophen (Acetaminophen 325 Mg Tablet) 650 mg PO Q6H PRN PRN Reason: Pain, Mild (Pain Scale 1-3) Benzocaine (Throat Lozenge, Medicated Lozenge) 1 lozenge MUCOUS MEM Q2H PRN PRN Reason: Sore Throat Last Admin: 05/30/23 09:10 Dose: 1 lozenge Documented By: JARED Enoxaparin Sodium (Enoxaparin Sodium 40 Mg/0.4 Ml Syringe) 40 mg SUBCUT Q24H [facility] Last Admin: 05/30/23 08:32 Dose: 40 mg Documented By: JARED Levalbuterol HCl (Levalbuterol Hcl 1.25 Mg/3 Ml Vial.Neb) 1.25 mg INHALE Q2H PRN PRN Reason: Shortness of Breath/Wheezing Last Admin: 05/29/23 14:15 Dose: 1.25 mg Documented By: RENETTA Levalbuterol HCl (Levalbuterol Hcl 1.25 Mg/3 Ml Vial.Neb) 1.25 mg INHALE RQ6H [facility] Last Admin: 05/30/23 05:21 Dose: 1.25 mg Documented By: KB Lorazepam (Lorazepam 1 Mg Tablet) 1 mg PO Q6H PRN PRN Reason: Anxiety Last Admin: 05/29/23 23:06 Dose: 1 mg Documented By: ROSI Melatonin (Melatonin 3 Mg Tablet) 6 mg PO BEDTIME PRN PRN Reason: Insomnia Methylprednisolone Sodium Succinate (Methylprednisolone Sod Succ 40 Mg/Ml Vial) 60 mg IVPUSH Q8H [facility] Last Admin: 05/30/23 08:29 Dose: 60 mg Documented By: JARED Ondansetron HCl (Ondansetron Hcl 4 Mg/2 Ml Vial) 4 mg IVPUSH Q8H PRN PRN Reason: Nausea and Vomiting Sodium Chloride (0.9 % Sodium Chloride Flush 3 Ml Syringe) 3 ml IVFLUSH QSHIFT [facility] Last Admin: 05/30/23 08:29 Dose: 3 ml Documented By: JARED <Garima Paulo Delgado - Last Filed: 05/30/23 10:40> Labs CBC & Chem 7: 05/28/23 05:51 05/28/23 05:51 <Garima Delgado - Last Filed: 05/30/23 10:40> Assessment and Plan (1) Asthma exacerbation: Status: Acute <Garima Delgado - Last Filed: 05/30/23 10:40> (2) Obesity: Status: Acute <Garima Delgado - Last Filed: 05/30/23 10:40> Assessment and Plan: 22-year-old obese male with pertinent history of asthma not on home oxygen who presented to the emergency department for evaluation of dyspnea. Acute respiratory distress due to acute exacerbation of moderate persistent asthma - Symptoms are persistent despite increased steroid dose and bronchodilators -- pulmonology follow up. - Continue IV steroids (Methylprednisolone) - Bronchodilators by Neb (Xopenex d/t tachycardia) Reactive leukocytosis and sinus tachycardia in the setting of above Suspected Hypoventilation BLAINE: should have outpatient sleep study Obesity: Counseled regarding diet and exercise DVT prophylaxis: Lovenox Full code Need for inpatient: Acute asthma exacerbation requiring IV steroid, frequent Neb treatment and specialist consult <Garima Delgado - Last Filed: 05/30/23 10:40> 22-year-old obese male with pertinent history of asthma not on home oxygen who presented to the emergency department for evaluation of dyspnea. Acute respiratory distress due to acute exacerbation of moderate persistent asthma - Symptoms are persistent despite increased steroid dose and bronchodilators -- pulmonology follow up. - Continue IV steroids (Methylprednisolone) for at 1 more day - Bronchodilators by Neb (Xopenex d/t tachycardia) Reactive leukocytosis and sinus tachycardia in the setting of above Suspected Hypoventilation BLAINE: should have outpatient sleep study Obesity: Counseled regarding diet and exercise DVT prophylaxis: Lovenox Full code Need for inpatient: Persistent Acute asthma exacerbation requiring IV steroid, frequent Neb treatment and specialist consult <Francois Gomez MD - Last Filed: 05/30/23 11:36> Quality Stroke Does the patient have a stroke diagnosis?: No <Garima Delgado - Last Filed: 05/30/23 10:40> VTE Prior VTE?: No <Garima Delgado - Last Filed: 05/30/23 10:40> VTE Risk Level:: Medical - moderate - high <Garima Delgado - Last Filed: 05/30/23 10:40> VTE Device Contraindication: Treatment Not Indicated <Garima Delgado - Last Filed: 05/30/23 10:40> VTE Drug Contraindication: N/A - Med Ordered <Garima Delgado - Last Filed: 05/30/23 10:40>
--- NOTE | 2023-05-30 12:53 | P.CDIM_ITS ---
PROVIDER RESPONSE TEXT: To clarify, the appropriate diagnosis supported by the clinical indicators: Obesity QUERY TEXT: PHYSICIAN'S DOCUMENTATION REQUEST Date of Query: 05/30/2023 11:23 AM EST Patient Name: Manuel Hatfield Admit Date: 05/30/2023 Dear Francois Gomez, A review of the medical record indicates additional documentation may be needed. Please review below and update the documentation accordingly. Clinical Indicators: BMI: 48.2 152.5kg Progress notes: obesity If possible, further specificity of the obesity noted within the record: Obesity Severe or Morbid Obesity Other (explain) Clinically unable to determine (explain) Thank you, Tori Delaney, CCS, CDIS Use of terms such as suspected, likely, concern for, or probable (associated with a specific diagnosi s that is being evaluated, monitored, or treated as if it exists) are acceptable and can be coded in the inpatient se tting, when documented at the time of discharge. Please use your independent medical judgment in providing your response. THIS QUERY IS PART OF THE PERMANENT MEDICAL RECORD
--- NOTE | 2023-05-30 14:16 | MHC.CM.PN ---
per rounds pt expected to dc tues plan remanis home no sylwia
[2023-05-31] VITALS (7 sets, daily range): BP systolic 106–107; BP diastolic 55; PULSE 70–100; RESP 18–22; TEMP 36.4–37.1; O2SAT 92–96
[2023-05-31] MEDS: levalbuterol HCL 1.25 MG/3 ML VIAL.NEB INHALE ×3 (00:03→11:09)
[2023-05-31] MEDS: Enoxaparin Sodium 40 MG/0.4 ML SYRINGE SUBCUT (09:13)
[2023-05-31] MEDS: methylPREDNISolone Sod Succ 40 MG/ML VIAL 60 MG IVPUSH (09:13)
[2023-05-31] MEDS: 0.9 % Sodium Chloride Flush 3 ML SYRINGE IVFLUSH (09:16)
--- NOTE | 2023-05-31 11:52 | MHC.CM.PN ---
pt dcd home no servies ordered
--- NOTE | 2023-05-31 11:54 | PM.DS ---
DS: Providers Provider Date of Service: 05/31/23 Date of admission: 05/30/23 09:50 Date of discharge: 05/31/23 Primary care physician: Juli Purvis MD Consults: 05/28/23 10:54 Consult to Pulmonology Routine Consulting Provider: [facility] Reason for consultation: acute, severe asthma with exacerbation Has provider been notified: Yes Attending physician on discharge: Sivan Joel Discharging clinician: Sivan Joel DS: Diagnosis Discharge Diagnosis (1) Asthma exacerbation: Status: Acute (2) Obesity: Status: Acute DS: Summary Hospital Course Hospital Course: 22-year-old male with pertinent history of asthma not on home oxygen who presents to the emergency department for evaluation of dyspnea. Patient states his symptoms started 3 days prior to presentation. He has been having nonproductive cough which is associated with wheezing and dyspnea which is worse with exertion. His symptoms have been progressive over the last 3 days and without any relief. He states he has been hospitalized for asthma in the past. Never been intubated. No fever, chills, chest discomfort, palpitations, orthopnea, PND, abdominal pain, changes in urinary or bowel habits. In the emergency department, patient with wheezing despite multiple DuoNeb treatments. hospital course: Acute respiratory distress due to acute exacerbation of moderate persistent asthma:Patient came to the hospital because of asthma exacerbation: Started on IV nebs, steroids seems to be improved significantly, now off oxygen and saturating fine 90s. Going home with p.o. steroids. Morbid obesity: Patient was encouraged to lose weight and cut down calories. Follow-up with PCP outpatient. plan: complete po prednisone 40 mg po daily x4 days follow up with pcp outpatient. assessment and plan coodination time spent 50 min,patient understands and in agreement with above plan. Time Attestation Discharge coordination time: Greater than 30 minutes Quality: Safe Use of Opioids Does Pt have an Active Cancer Diagnosis on the Problem List?: No Quality: Stroke Does the patient have a stroke diagnosis?: No Physical Exam Vital Signs: Vital Signs: Last Vital Signs Temp 97.6 F 05/31/23 06:54 Pulse 90 05/31/23 11:10 Resp 20 05/31/23 11:10 BP 106/55 L 05/31/23 06:54 Pulse Ox 94 05/31/23 09:42 O2 Del Method Nasal Cannula 05/31/23 09:42 O2 Flow Rate 1 05/31/23 09:42 BMI result Body Mass Index 48.2 General: AO X 3 Resp: air entey fair ,no rales or wheezin CVS: S1,S2,RRR GI: NT, no distention Skin: No rash Neuro: motor grossly intact Psych: appropriate affect DS: Data Imaging Chest x-ray: Radiologist's impression: ITS Impressions Chest X-Ray 05/28/23 03:55 IMPRESSION: Unremarkable examination. Discharge Plan Discharge Anticipated Discharge Date/Time: 05/31/23 11:43 Patient Disposition: Home, Self-Care Discharge Diagnosis: Asthma exacerbation Referrals: Juli Purvis MD [Primary Care Provider] - 1 Week Discharge Medications: New prednisone 20 mg Tablet 40 mg PO DAILY Qty: 8 0RF Chloraseptic Sore Throat 6-10 mg Lozenge 1 tracy mucous membrane Q2H PRN (Reason: Sore Throat) Qty: 8 0RF Continued albuterol sulfate 2.5 mg /3 mL (0.083 %) solution for nebulization 2.5 mg inhalation Q4-6H PRN (Reason: wheezing) Qty: 90 0RF albuterol sulfate [Ventolin HFA] 90 mcg/actuation HFA aerosol inhaler 2 puff INHALATION Q4H PRN (Reason: Shortness Of Breath Or Wheezing) Qty: 90 0RF budesonide-formoterol [Symbicort] 160-4.5 mcg/actuation HFA aerosol inhaler 2 puff INHALATION BID Qty: 2 0RF Discharge Orders: Discharge Order (Routine); Ordered 05/31/23 Ordered By: Sivan Joel Diet: Advance to usual diet Activity on Discharge: As tolerated Stand Alone Forms: Patient Portal Discharge page Care Plan Goals: Patient came to the hospital because of asthma exacerbation: Started on IV nebs, steroids seems to be improved significantly, now off oxygen and saturating fine 90s. Going home with p.o. steroids. Morbid obesity: Patient was encouraged to lose weight and cut down calories. Follow-up with PCP outpatient. Health Concerns: As above. Plan of Treatment: As above. Assessment: As above. Discharge Date/Time: 05/31/23 12:44
[2023-05-31] MEDS: predniSONE 20 MG TABLET 40 MG PO (12:10)
--- NOTE | 2023-05-31 12:32 | MHC.CM.PN ---
pt dcd home no servies orderd
== END 2023-05-31 12:44 | disposition home or self-care (01) | DRG 141 ==
LOC: HO.ED 04:14 → HO.EDOVER 04:47 → HO.S3 19:52
PROVIDERS: Admitting Provider Student in an Organized Health Care Education/Training Program; Emergency Provider Internal Medicine; PCP Family Medicine; Visit Provider Internal Medicine
DX: J45.41 Moderate persistent asthma with (acute) exacerbation (principal); E66.01 Morbid (severe) obesity due to excess calories; G47.33 Obstructive sleep apnea (adult) (pediatric); R06.03 Acute respiratory distress; Z20.822 Contact with and (suspected) exposure to COVID-19; Z91.148 Patient's other noncompliance with medication regimen for other reason; Z71.3 Dietary counseling and surveillance; Z68.42 Body mass index [BMI] 45.0-49.9, adult
CPT/HCPCS: 36415; 71045; 80048; 84484; 85025; 87502; 87635; 93005; 94640; 99285; J1650; J2920; J2930; J3475

== ENCOUNTER → 2023-05-28 03:41 | Outpatient (BNV) | payer MEDICAID, SELFPAY | PROVIDERS: Admitting Provider Student in an Organized Health Care Education/Training Program; Emergency Provider Internal Medicine; PCP Family Medicine; Visit Provider Internal Medicine | DX: R00.0 Tachycardia, unspecified (principal); I45.10 Unspecified right bundle-branch block; I44.4 Left anterior fascicular block | CPT/HCPCS: 93010 ==

== ENCOUNTER → 2023-05-28 04:43 | Outpatient (BNV) | payer MEDICAID, SELFPAY | PROVIDERS: Admitting Provider Student in an Organized Health Care Education/Training Program; Emergency Provider Internal Medicine; PCP Family Medicine; Visit Provider Internal Medicine Pulmonary Disease | DX: J45.901 Unspecified asthma with (acute) exacerbation (principal) | CPT/HCPCS: 99222 ==

== ENCOUNTER → 2023-05-28 04:43 | Outpatient (BNV) | payer MEDICAID, SELFPAY | PROVIDERS: Admitting Provider Student in an Organized Health Care Education/Training Program; Emergency Provider Internal Medicine; PCP Family Medicine; Visit Provider Student in an Organized Health Care Education/Training Program | DX: J45.901 Unspecified asthma with (acute) exacerbation (principal); R06.03 Acute respiratory distress; E66.9 Obesity, unspecified; Z68.42 Body mass index [BMI] 45.0-49.9, adult | CPT/HCPCS: 99222; 99232; 99239; 99499 ==

== ENCOUNTER 2023-08-29 11:31 | Emergency (ER) | payer MEDICAID, SELFPAY ==
--- NOTE | 2023-08-29 11:40 | ED.GENADULT ---
HPI - General Adult General Chief complaint: Skin/Abscess/Foreign Body Stated complaint: bites on arm Time Seen by Provider: 08/29/23 11:42 Source: patient Mode of arrival: ambulatory Limitations: no limitations History of Present Illness HPI narrative: 23 yo male with history of asthma here bug bites since tuesday, Using benadryl and itch cream. +itchy. Not painful. Per patient bed bugs are going on around where he is living at [employer]. No difficulty breathing, vomiting, diarrhea. Related Data Previous Rx's ?Medication ?Instructions ?Recorded albuterol sulfate 2.5 mg/3 mL 2.5 mg (3 mL) inhalation Q4-6H PRN 05/31/23 (0.083 %) solution for nebulization wheezing #90 mL albuterol sulfate 90 mcg/actuation 2 puff inhalation Q4H PRN 05/31/23 aerosol inhaler (Ventolin HFA) Shortness Of Breath Or Wheezing #90 grams benzocaine 6 mg-menthol 10 mg 1 tracy mucous membrane Q2H PRN Sore 05/31/23 lozenges (Chloraseptic Sore Throat) Throat #8 ea budesonide-formoterol HFA 160 2 puff inhalation BID #2 grams 05/31/23 mcg-4.5 mcg/actuation aerosol inhaler (Symbicort) prednisone 20 mg tablet 40 mg (2 x 20 mg) PO DAILY #8 tabs 05/31/23 prednisone 20 mg tablet 40 mg (2 x 20 mg) PO DAILY #10 tabs 08/29/23 Allergies Allergy/AdvReac Type Severity Reaction Status Date / Time No Known Allergies Allergy Verified 08/29/23 11:43 Review of Systems Review of Systems: Yes all other systems are reviewed and are negative Constitutional: Constitutional: Reports no additional constitutional complaints, Denies body ache(s), Denies chills, Denies fever(s), Denies headache(s) and Denies weakness Eyes: Eyes: Reports no additional eye complaints and Denies change in vision ENT: Reports system reviewed and no additional complaints, except as documented, Denies dizziness, Denies headache(s), Denies nasal congestion, Denies nasal discharge and Denies neck pain Cardiovascular: Cardiovascular: Reports no additional cardiovascular complaints, Denies chest pain, Denies leg edema and Denies dyspnea Respiratory: Respiratory: Reports no additional respiratory complaints, Denies cough and Denies dyspnea Gastrointestinal: Gastrointestinal: Reports no additional gastrointestinal complaints, Denies abdominal pain, Denies diarrhea, Denies nausea and Denies vomiting Genitourinary: Genitourinary: Denies urinary incontinence Musculoskeletal: Musculoskeletal: Reports no additional musculoskeletal complaints, Denies back pain, Denies arthralgias, Denies joint swelling, Denies neck pain, Denies numbness and Denies tingling Integumentary/Breasts: Skin/Breast: Reports system reviewed and no additional complaints, except as docu, Reports pruritus and Denies rash Neurologic: Reports system reviewed and no additional complaints, except as documented, Denies Abnormal speech present, Denies dizziness, Denies headache(s), Denies numbness, Denies tingling and Denies weakness PMFSH Past Medical History Attestation statement: The following information was validated with the patient. Source: old records reviewed and nursing notes reviewed Medical History Asthma Social History Social History Household Members: Family Housing: Apartment Do you presently have visiting nurse or other home services: No Patient Tobacco Use Status: Never used Tobacco Advance Directives: No Advance Directives Information Provided: Yes service: No Physical Exam ED Vital Signs: Vital Signs - 24 hr 08/29/23 11:41 Temperature 97.7 F Pulse Rate 90 Respiratory Rate 16 Blood Pressure 138/84 Pulse Oximetry 97 Oxygen Delivery Method Room Air BMI result Body Mass Index 40.4 Const General: cooperative, healthy appearing, comfortable and no acute distress Orientation/consciousness: patient oriented x3 Limitations: no limitations [facility] Head: Yes normal to inspection Ears: hearing grossly normal bilaterally General nose exam: Normal external nose present Face and sinus: Yes normal facial exam Mouth: Normal oral and palatal mucosa present Throat: Yes posterior oropharynx normal Eyes General: appearance normal, both eyes and all related structures Pupils: Equal, round and reactive pupils present Neck Neck: Yes normal visual inspection Chest Chest palpation & inspection: normal inspection of the chest Resp Effort & Inspection: normal respiratory effort Auscultation: clear to auscultation bilaterally Cardio Rate: regular rate Rhythm: regular rhythm Peripheral pulses: Peripheral pulses 2+ throughout GI Inspection: Yes normal to inspection Palpation (GI): Soft to palpation and nontender Auscultation: normal bowel sounds Back/Spine/Pelvis Thoracic/Lumbar Spine: thoracic and lumbar spine normal to inspection Skin General skin exam: no rashes or lesions noted Neuro General: patient oriented x3, no focal motor deficits and normal sensation to monofilament Cranial nerves: Yes Equal, round and reactive pupils present Cognition (Neuro): normal cognition Speech: No Abnormal speech present Gait exam (Neuro): Normal gait present Motor exam (neuro): 5/5 motor strength present throughout Extrem Other: On the bilateral upper extremities there are multiple lesions which have slight erythema and raised appearance with a central puncture site. General: Yes normal to inspection Medical Decision Making Medical Decision Making MDM Narrative: 23 yo male with history of asthma here bug bites since tuesday, Using benadryl and itch cream. +itchy. Not painful. Per patient bed bugs are going on around where he is living at [employer] [place]. No difficulty breathing, vomiting, diarrhea. On the bilateral upper extremities there are multiple lesions which have slight erythema and raised appearance with a central puncture site. Consistent with insect bites. Will add prednisone and recommend patient continue Benadryl anti-itch cream as needed Differential Diagnosis Differential Diagnoses: The differential diagnosis associated with the presentation includes insect bites Admission/Observation Consideration of admission/observation: Escalation of care including admission/observation considered No airway involvement, angioedema requiring observation or IV medication Discharge Plan Discharge Clinical Impression: Insect bite Patient Disposition: Home, Self-Care Instructions: Acute Rash (ED) Additional Instructions: Continue benadryl and anti-itch cream Prescriptions: New prednisone 20 mg tablet 40 mg PO DAILY Qty: 10 0RF No Action prednisone 20 mg Tablet 40 mg PO DAILY Qty: 8 0RF Chloraseptic Sore Throat 6-10 mg Lozenge 1 tracy mucous membrane Q2H PRN (Reason: Sore Throat) Qty: 8 0RF albuterol sulfate 2.5 mg /3 mL (0.083 %) solution for nebulization 2.5 mg inhalation Q4-6H PRN (Reason: wheezing) Qty: 90 0RF albuterol sulfate [Ventolin HFA] 90 mcg/actuation HFA aerosol inhaler 2 puff INHALATION Q4H PRN (Reason: Shortness Of Breath Or Wheezing) Qty: 90 0RF budesonide-formoterol [Symbicort] 160-4.5 mcg/actuation HFA aerosol inhaler 2 puff INHALATION BID Qty: 2 0RF Referrals: Physician,None [Physician] - 1 week Discharge Date/Time: 08/29/23 11:51 Print Language: Maori
[2023-08-29 11:41] VITALS: BP 138/84; PULSE 90; RESP 16; TEMP 36.5; O2SAT 97; BMI 40.4
== END 2023-08-29 11:51 | disposition home or self-care (01) ==
PROVIDERS: Emergency Provider Emergency Medicine
DX: S40.862A Insect bite (nonvenomous) of left upper arm, initial encounter (principal); S40.861A Insect bite (nonvenomous) of right upper arm, initial encounter; W57.XXXA Bitten or stung by nonvenomous insect and other nonvenomous arthropods, initial encounter; Y93.9 Activity, unspecified; Y92.9 Unspecified place or not applicable; Y99.9 Unspecified external cause status
CPT/HCPCS: 99281